=== PATIENT | male | born 1955 | race Caucasian/White ===

== ENCOUNTER 2016-06-23 10:25 | Outpatient (CLI) | payer SELFPAY | END 2016-06-23 10:26 | disposition home or self-care (01) | DX: I10 Essential (primary) hypertension (principal); E78.2 Mixed hyperlipidemia; E03.9 Hypothyroidism, unspecified; R73.01 Impaired fasting glucose ==

== ENCOUNTER 2018-08-30 09:00 | Outpatient (CLI) | payer MEDICARE ==
[2018-08-30 10:24] LABS: BASOPHILS % (AUTO) 0.6 %; EOSINOPHILS # (AUTO) 0.2 10^3/uL (0.0-0.7); EOSINOPHILS % (AUTO) 3.6 %; HGB - HEMOGLOBIN 15.3 g/dL (14.0-18.0); LYMPHOCYTES # (AUTO) 1.8 10^3/uL (1.5-3.5); MEAN CORPUSCULAR HEMOGLOBIN 30.7 pg (27.0-31.0); MEAN CORPUSCULAR HGB CONC 33.2 g/dL (32.0-36.0); MEAN CORPUSCULAR VOLUME 92.4 fL (80.0-94.0); MEAN PLATELET VOLUME 7.7 fL (7.4-11.4); MONOCYTES # (AUTO) 0.6 10^3/uL (0.0-1.0); NEUTROPHILS # (AUTO) 2.5 10^3/uL (1.5-6.6); NEUTROPHILS % (AUTO) 49.8 %; PLT - PLATELET COUNT 244 10^3/uL (130-450); RED BLOOD COUNT 4.98 10^6/uL (4.70-6.10); RED CELL DISTRIBUTION WIDTH 13.7 % (12.0-15.0); WHITE BLOOD COUNT 5.1 x10^3/uL (4.8-10.8)
[2018-08-30 10:37] LABS: ALBUMIN 4.3 g/dL (3.2-5.5); ALBUMIN/GLOBULIN RATIO 1.4 (1.0-2.2); BILIRUBIN,TOTAL 1.3 mg/dL (0.2-1.0); CALCIUM 9.9 mg/dL (8.5-10.3); CREATININE 0.7 mg/dL (0.6-1.2); TOTAL PROTEIN 7.4 g/dL (6.7-8.2)
--- NOTE | 2018-08-30 12:08 | CT Report ---
Reason: PERSONAL HISTORY OF NICOTINE DEPENDENCE Procedure Date: 08/30/2018 Accession Number: [id number] / [id number] Procedure: CT - Low Dose Lung Cancer Screen CPT Code: FULL RESULT: EXAM CT LUNG SCREEN EXAM DATE: 08/30/2018 09:36 AM. HISTORY: 63-year-old patient with [id number] smoking history. Currently smoking: No. Years since quittin. COMPARISON: None. TECHNIQUE: CT examination of the entire thorax without contrast was performed using low-dose technique. Thin section coronal, axial, sagittal and MIP axial images were obtained. In accordance with CT protocol optimization, one or more of the following dose reduction techniques were utilized for this exam: automated exposure control, adjustment of mA and/or KV based on patient size, or use of iterative reconstructive technique. FINDINGS: Nodules: Right upper lobe: None. Right middle lobe: None. Right lower lobe: 4 mm nodule image 90 series 5. Left upper lobe: None. Left lower lobe: None. Emphysema: Minimal. Pleura: Unremarkable. Aorta: Mildly calcified. Mediastinum: Unremarkable. Coronary calcifications: Marked coronary calcifications. Other pulmonary findings: None. Other extrapulmonary findings: Multiple hypodense hepatic lesions some of which are characterized as cysts, others remain uncharacterized, possibly due to low-dose technique. IMPRESSION: Lung-RADS ASSESSMENT CATEGORY: 3 - probably benign. Probability of malignancy: 1-2% RECOMMENDATION: 6 month follow-up low-dose chest CT as per Lung-RADS guidelines. RADIA
== END 2018-08-30 09:01 | disposition home or self-care (01) ==
LOC: DI 09:00
PROVIDERS: ATTEND Physician Assistant
DX: Z12.2 Encounter for screening for malignant neoplasm of respiratory organs (principal); Z87.891 Personal history of nicotine dependence; I10 Essential (primary) hypertension
CPT/HCPCS: 36415; 80053; 85025; G0297

== ENCOUNTER → 2018-08-30 | Outpatient (CLI) | payer MEDICARE | LOC: RT 09:20 | PROVIDERS: ATTEND Internal Medicine Gastroenterology | DX: I10 Essential (primary) hypertension (principal) | CPT/HCPCS: 93005 ==

== ENCOUNTER 2018-09-08 07:46 | Day surgery (SDC) | payer MEDICARE ==
[2018-09-08] MEDS ORDERED: LACTATED RINGERS 1,000 ML IV ONE (08:09)
[2018-09-08] MEDS ORDERED: fentaNYL 100 MCG/2 ML VIAL IVP ONE (10:12)
[2018-09-08] MEDS ORDERED: MIDAZOLAM 2 MG/2 ML VIAL IVP ONE (10:12)
[2018-09-08 11:04] VITALS: BP 103/76
== END 2018-09-08 07:47 | disposition home or self-care (01) ==
LOC: SDS 07:46
PROVIDERS: ATTEND Internal Medicine Gastroenterology
PROC: 0DBK8ZZ Excision of Ascending Colon, Via Natural or Artificial Opening Endoscopic (ICD-10-PCS; principal; 2018-09-08 09:30)
DX: Z12.11 Encounter for screening for malignant neoplasm of colon (principal); D12.2 Benign neoplasm of ascending colon; K57.30 Diverticulosis of large intestine without perforation or abscess without bleeding; I10 Essential (primary) hypertension; E66.9 Obesity, unspecified; Z68.30 Body mass index [BMI] 30.0-30.9, adult; Z87.891 Personal history of nicotine dependence; K21.9 Gastro-esophageal reflux disease without esophagitis; Z80.0 Family history of malignant neoplasm of digestive organs
CPT/HCPCS: 45380; J7120

== ENCOUNTER 2019-07-22 07:30 | Outpatient (CLI) | payer MEDICARE, OTHER ==
[2019-07-22 08:06] LABS: CHOL/HDL RATIO 3.4 (<5.0); CHOLESTEROL 181 mg/dL; HDL CHOLESTEROL 54 mg/dL; LDL CHOLESTEROL,CALCULATED 116 mg/dL; LDL/HDL RATIO 2.1 (<3.6); VLDL CHOLESTEROL 11 mg/dL
== END 2019-07-22 07:31 | disposition home or self-care (01) ==
LOC: LAB 07:30
PROVIDERS: ATTEND Physician Assistant
DX: E78.2 Mixed hyperlipidemia (principal)
CPT/HCPCS: 36415; 80061; 83721

== ENCOUNTER 2019-08-05 08:48 | Outpatient (CLI) | payer MEDICARE, OTHER ==
[2019-08-05 09:07] LABS: BASOPHILS % (AUTO) 0.6 %; EOSINOPHILS # (AUTO) 0.4 10^3/uL (0.0-0.7); EOSINOPHILS % (AUTO) 5.4 %; HGB - HEMOGLOBIN 14.8 g/dL (14.0-18.0); LYMPHOCYTES # (AUTO) 2.2 10^3/uL (1.5-3.5); LYMPHOCYTES % (AUTO) 30.8 %; MEAN CORPUSCULAR HEMOGLOBIN 31.8 pg (27.0-31.0); MEAN CORPUSCULAR HGB CONC 34.1 g/dL (32.0-36.0); MEAN CORPUSCULAR VOLUME 93.1 fL (80.0-94.0); MEAN PLATELET VOLUME 8.5 fL (7.4-11.4); MONOCYTES # (AUTO) 0.7 10^3/uL (0.0-1.0); NEUTROPHILS # (AUTO) 3.8 10^3/uL (1.5-6.6); NEUTROPHILS % (AUTO) 52.5 %; PLT - PLATELET COUNT 275 10^3/uL (130-450); RED BLOOD COUNT 4.66 10^6/uL (4.70-6.10); RED CELL DISTRIBUTION WIDTH 12.9 % (12.0-15.0); WHITE BLOOD COUNT 7.2 x10^3/uL (4.8-10.8)
[2019-08-05 09:22] LABS: HB2 TOTAL 15.2 g/dL; HEMOGLOBIN A1C 0.66 g/dL; HEMOGLOBIN A1C % 6.1 % (4.6-6.2)
[2019-08-05 09:39] LABS: ALBUMIN 4.1 g/dL (3.2-5.5); ALBUMIN/GLOBULIN RATIO 1.3 (1.0-2.2); BILIRUBIN,TOTAL 0.5 mg/dL (0.2-1.0); CALCIUM 9.3 mg/dL (8.5-10.3); CREATININE 0.8 mg/dL (0.6-1.2); TOTAL PROTEIN 7.3 g/dL (6.7-8.2)
== END 2019-08-05 08:49 | disposition home or self-care (01) ==
LOC: LAB 08:48
DX: E78.2 Mixed hyperlipidemia (principal); I10 Essential (primary) hypertension; R73.01 Impaired fasting glucose; E03.9 Hypothyroidism, unspecified
CPT/HCPCS: 36415; 80053; 83036; 85025

== ENCOUNTER 2020-03-18 07:48 | Emergency (ER) | payer MEDICARE, OTHER ==
[2020-03-18 08:01] VITALS: BP 127/94
[2020-03-18] MEDS ORDERED: BUFFERED LIDOCAINE 10 ML SYRINGE SUBQ STA (08:04)
--- NOTE | 2020-03-18 08:21 | ED Physician Documentation ---
History of Present Illness - Stated complaint Stated Complaint: NOSE BLEED - Chief complaint Chief Complaint: General - History obtained from History obtained from: Patient - History of Present Illness Timing: Prior to arrival (0600), Today - Additonal information Additional information: Previously well 64-year-old male with a history of hypertension has developed some bleeding below his left right nares and his upper lip and he has not been able to control this even with direct pressure. He has had this area bleed once previously earlier in the year that spontaneously resolved. He does not remember seen a sore or pimple there.He states that he has otherwise been well recently. Review of Systems Constitutional: denies: Fever Eyes: denies: Decreased vision Ears: denies: Ear pain Nose: denies: Congestion Throat: denies: Sore throat Respiratory: denies: Cough GI: denies: Nausea, Vomiting PD PAST MEDICAL HISTORY - Past Medical History Cardiovascular: Hypertension Respiratory: Other Endocrine/Autoimmune: HyPOthyroidism GI: None : None HEENT: None Psych: None Musculoskeletal: Other Derm: None - Allergies Allergies/Adverse Reactions: Allergies Allergy/AdvReac Type Severity Reaction Status Date / Time Rxpmvom-Fgk-Fdv Reductase Allergy Cramps Verified 03/18/20 08:00 Inhibitor PD ED PE NORMAL - Vitals Vital signs reviewed: Yes (Mild hypertension) - General General: Alert and oriented X 3, No acute distress, Well developed/nourished - HEENT HEENT: Atraumatic, PERRL, EOMI, Other (There is a pinpoint area where bleeding blood is oozing out on the upper lip there is no surrounding changes to the skin or mass to the skin. 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, No motor deficit, No sensory deficit, Normal speech Eye Opening: Spontaneous Motor: Obeys Commands Verbal: Oriented GCS Score: 15 - Psych Psych: Normal mood, Normal affect Results - Vitals Vitals: Vital Signs - 24 hr 03/18/20 07:55 Temperature 36.2 C L Heart Rate 78 Respiratory 18 Rate Blood Pressure 127/94 H O2 Saturation 95 Oxygen O2 Source Room air Procedures - Laceration (location) upper lip Length in cm: 0.5 Wound type: Clean, Other (pinpoint) Neurovascular status: Sensory intact, Motor intact Anesthesia: Lidocaine 1%, With bicarb Wound Preparation: Hibiclens, Wound explored, To the base Skin layer closure: Nylon, Size #-0 - enter number (6-0), Other (figure of 8) Other: Patient tolerated well, No complications, Neurovascular intact, Dressing applied, Tetanus UTD Complexity: Simple PD MEDICAL DECISION MAKING - ED course Complexity details: considered differential, d/w patient ED course: 64-year-old male with a spot on his upper lip that is bleeding controlled only with direct pressure has a stitch placed and this does provide control of the bleeding. I will asked patient have the stitch removed within the week. Departure - Departure Disposition: 01 Home, Self Care Clinical Impression: Skin hemorrhage Condition: Stable Instructions: ED Laceration Facial Sutr Tape Follow-Up: DAVID BEAR DO [Primary Care Provider] - Comments: The stitch under the nose should be removed in 5-7 days
== END 2020-03-18 08:28 | disposition home or self-care (01) ==
LOC: ED 07:48
DX: S01.531A Puncture wound without foreign body of lip, initial encounter (principal); X58.XXXA Exposure to other specified factors, initial encounter; I10 Essential (primary) hypertension
CPT/HCPCS: 12011; 99281; 99283

== ENCOUNTER 2020-06-10 08:54 | Outpatient (CLI) | payer MEDICARE, OTHER ==
--- NOTE | 2020-06-10 10:59 | CT Report ---
PROCEDURE: Low Dose Lung Cancer Screen INDICATIONS: HISTORY OF SMOKING TECHNIQUE: Noncontrast low-dose 5 mm thick sections acquired from the pulmonary apices to the posterior costophr enic angles. 7 mm thick coronal and sagittal MIP reformats were then acquired. For radiation dose r eduction, the following was used: automated exposure control, adjustment of mA and/or kV according t o patient size. COMPARISON: 08/30/2018 similar prior study.. FINDINGS: Image quality: Excellent. Lungs and pleura: No pulmonary nodule is present. An area of prior concern right lower lobe at the l evel of the dome of the diaphragm appears normal at this time. Mediastinum: Heart size is normal. No pericardial effusion but there is moderate coronary artery ca lcification noted. No mediastinal adenopathy by size criteria. Thoracic aorta and central pulmonary arteries are normal in size. Esophagus is normal in caliber. No hiatal hernia. Bones and chest wall: No suspicious bony lesions. No vertebral body compression fractures. No axil gina or supraclavicular adenopathy by size criteria. The thyroid is normal in size. Abdomen: Visualized upper abdomen solid organs and bowel loops appear normal in the absence of contr ast. Previously present hepatic cysts are again noted, larger at the right posterior hepatic segment but without change from 08/30/2018 IMPRESSION: With reference to the prior examination 08/30/2018 no interval development of a lung mass has occurred. An area of prior right lower lobe concern now appears normal. Incidental note is again made of cysti c structures within the liver parenchyma without appreciable change from 2019. Lung RADS category 1, follow-up low-dose noncontrast CT scanning in one year is recommended. Reviewed by: Ben Peng MD on 06/10/2020 10:58 AM PST Approved by: Ben Peng MD on 06/10/2020 10:58 AM PST Station ID: [id number]
== END 2020-06-10 08:55 | disposition home or self-care (01) ==
LOC: DI 08:54
PROVIDERS: ATTEND Family Medicine
DX: Z12.2 Encounter for screening for malignant neoplasm of respiratory organs (principal); Z87.891 Personal history of nicotine dependence

== ENCOUNTER 2022-07-11 08:51 | Outpatient (CLI) | payer MEDICARE, OTHER ==
--- NOTE | 2022-07-11 09:29 | CT Report ---
PROCEDURE: CHEST WO INDICATIONS: LUNG NODULE TECHNIQUE: Noncontrast 1mm axial images were acquired from the pulmonary apices to the posterior costophrenic an gles. Axial 5 mm soft tissue kernel reconstructions were performed as well as 8 mm axial MIP and cor onal and sagittal 5 mm reformations. For radiation dose reduction, the following was used: automate d exposure control, adjustment of mA and/or kV according to patient size. COMPARISON: 1920, 08/30/2018 FINDINGS: Image quality: Excellent. Lungs and pleura: In 2019, a 4 mm right lower lobe nodule is seen. This is not seen on the current s tudy. No new nodules are seen. No acute air space opacities. No pleural effusions or pneumothorax. Central and peripheral airways are patent and normal in caliber. Mediastinum: Heart size is normal. No pericardial effusion. Moderate to prominent coronary calcifi cation can be seen. No mediastinal adenopathy by size criteria. Thoracic aorta and central pulmonary arteries are normal in size. Esophagus is normal in caliber. No hiatal hernia. Bones and chest wall: No suspicious bony lesions. No vertebral body compression fractures. There ar e remote left-sided rib fractures. No axillary or supraclavicular adenopathy by size criteria. The t hyroid is normal in size and there are no incidental findings. Abdomen: Prominent liver cysts are seen, as before. The visualized portions of the upper abdominal s tructures are otherwise within normal limits. IMPRESSION: Nonvisualization of the 4 mm right lower lobe nodule that was described on the 2019 report. No new nodules are seen. Clear lungs, without infiltrates. Additional findings: Moderately prominent coronary artery calcification Remote left-sided rib fractures Liver cysts Reviewed by: Chris Mrain MD on 07/11/2022 8:27 AM [facility] Approved by: Chris Marin MD on 07/11/2022 8:27 AM [facility] Station ID: [id number]
== END 2022-07-11 08:52 | disposition home or self-care (01) ==
LOC: DI 08:51
PROVIDERS: ATTEND Internal Medicine
DX: R91.1 Solitary pulmonary nodule (principal); I25.10 Atherosclerotic heart disease of native coronary artery without angina pectoris; S22.42XD Multiple fractures of ribs, left side, subsequent encounter for fracture with routine healing; K76.89 Other specified diseases of liver

== ENCOUNTER 2023-04-08 15:03 | Outpatient (CLI) | payer MEDICARE, OTHER ==
--- NOTE | 2023-04-08 19:31 | MRI Report ---
PROCEDURE: ANKLE WO - LT INDICATIONS: ACHILLES TENDINITIS TECHNIQUE: Noncontrast sagittal T1 spin echo and T2 fast spin echo with fat saturation, axial proton density fas t spin echo and T2 fast spin echo with fat saturation, coronal T1 spin echo and T2 fast spin echo wit h fat saturation through the ankle/hindfoot. COMPARISON: None. FINDINGS: Image quality: Excellent. Bones and joints: No bone marrow contusions or fractures. No hindfoot coalitions. No osteochondral injuries of the talar dome. Small tibiotalar joint effusion is seen, no gross loose bodies. Medial structures: The posterior tibialis, flexor digitorum longus, and flexor hallucis longus tendo ns are intact. Amount of fluid distending flexor tendon sheath is seen. The posterior tibial neurovas cular bundle appears normal within the tarsal tunnel, without extrinsic mass effect. The deltoid lig ament and spring ligament are thickened. Lateral structures: The anterior talofibular, calcaneofibular, and posterior talofibular ligaments a ppear intact. More superiorly, the anterior and posterior tibiofibular ligaments appear normal, as i s the intermalleolar ligament. The tibiofibular syndesmosis is normal in width at 2 mm or less. The peroneus longus and brevis tendons. Mildly thickened with fluid distending tendon sheath. Adjacent b gretchen peroneal tubercle and retrotrochlear prominence are normal in size. The sinus tarsi demonstrates normal fatty signal, without edema, fibrosis, or cyst formation. Visualized sinus tarsi components (cervical ligament, interosseous talocalcaneal ligament, roots of the inferior extensor retinaculum) appear normal. Anterior structures: The tibialis anterior, extensor hallucis longus, and extensor digitorum longus tendons appear intact. Posterior and plantar structures: Significant thickening involving 7 cm segment of distal Achilles te ndon extending to its posterior calcaneal insertion with interstitial T2 hyperintense signal and kiarra ures up to 1.8 x 1 cm in largest transverse and AP diameters. Medial and lateral bands of the plantar fascia are of normal thickness. No abductor digiti quinti muscle atrophy to suggest Flores neuropat hy. IMPRESSION: 1. No marrow edema. No fracture or dislocation. No osteochondral injuries of talar dome. Small joint effusion, no loose bodies. 2. Low-grade tenosynovitis involving flexor tendons. Low to moderate grade tenosynovitis involving pe roneus tendons. 3. Mild deltoid ligament and spring ligament sprain. 4. Moderate tendinosis and intrasubstance partial thickness tear involving 7 cm segment of distal Ach illes tendon extending to its posterior calcaneal insertion. No Achilles tendon rupture. Reviewed by: Gómez Ott MD on 04/08/2023 7:29 PM PST Approved by: Gómez Ott MD on 04/08/2023 7:29 PM PST Station ID: [id number]
== END 2023-04-08 15:04 | disposition home or self-care (01) ==
LOC: DI 15:03
PROVIDERS: ATTEND Internal Medicine
DX: S86.012A Strain of left Achilles tendon, initial encounter (principal); M65.9 Synovitis and tenosynovitis, unspecified; S93.422A Sprain of deltoid ligament of left ankle, initial encounter; M25.472 Effusion, left ankle

== ENCOUNTER 2023-06-03 12:17 | Outpatient (CLI) | payer MEDICARE, OTHER ==
--- NOTE | 2023-06-03 15:59 | XRAY Report ---
PROCEDURE: Hip w/Pelvis 2-3V RT INDICATIONS: RIGHT HIP PAIN TECHNIQUE: 2 views of the hip were acquired. COMPARISON: None. FINDINGS: Bones: No fractures or dislocations. No suspicious bony lesions. Left hip arthroplasty. Hardware is intact without evidence of hardware fracture or periprosthetic lucency to suggest loosening. Moder ate to severe right hip arthritic change. Soft tissues: No suspicious soft tissue calcifications or masses. IMPRESSION: Moderate to severe right hip arthritic change. Reviewed by: Samaria Kerns MD on 06/03/2023 3:58 PM PST Approved by: Samaria Kerns MD on 06/03/2023 3:58 PM PST Station ID: [id number]
== END 2023-06-03 12:18 | disposition home or self-care (01) ==
LOC: DI 12:17
PROVIDERS: ATTEND Internal Medicine
DX: M16.11 Unilateral primary osteoarthritis, right hip (principal)

== ENCOUNTER 2024-01-21 12:45 | Outpatient (CLI) | payer MEDICARE, OTHER ==
--- NOTE | 2024-01-21 15:45 | MRI Report ---
Ankle LT WO CLINICAL HISTORY: 68 years of age, Male, L ACHILLIES INJURY. COMPARISON: 04/08/2023 Technique: Multisequence, multiplanar MRI of the left ankle was performed without contrast. IV CONTRAST: Not given FINDINGS: Tendons: Mild tenosynovitis of the posterior tibialis. The flexor digitorum longus and the flexor nima luces longus are unremarkable. The extensor tendons are unremarkable. Longitudinal split tear of the peroneal brevis. The peroneal longus tendon is intact. Mild tenosynovitis of the peroneal tendon. Sev ere tendinosis of the distal Achilles tendon with full-thickness tear approximately 4.0 cm proximal t o the calcaneal insertion. There is a tendon gap of 4.3 cm. Ligaments: The anterior and posterior tibiofibular ligaments are intact. The anterior and posterior t alofibular ligaments are intact. The calcaneofibular ligament is unremarkable. The superficial and de ep components of the deltoid ligament are intact. Sinus Tarsi: Normal signal without evidence of inflammatory change or fibrosis. Plantar fascia: Normal signal and morphology without evidence of inflammation or tear. Muscles: Visualized intrinsic foot musculature demonstrates normal signal and bulk. Bones and cartilage: Normal bone marrow signal. No fractures. No osteochondral lesions. Miscellaneous: Tarsal tunnel appears normal. No significant effusion. No ganglion cyst. IMPRESSION: Severe tendinosis of the distal Achilles tendon with full-thickness tear. 4.0 cm tendon gap. Reviewed by: Sunshine Mccarthy MD on 01/21/2024 3:43 PM PDT Approved by: Sunshine Mccarthy MD on 01/21/2024 3:43 PM PDT Station ID: [id number]
== END 2024-01-21 12:46 | disposition home or self-care (01) ==
LOC: DI 12:45
PROVIDERS: ATTEND Podiatrist
DX: S86.012A Strain of left Achilles tendon, initial encounter (principal)